=== PATIENT | male | born 1965 | race Caucasian/White ===

== ENCOUNTER 2023-02-05 06:56 | Day surgery (SDC) | payer BC ==
[2023-02-05] MEDS ORDERED: Sodium Chloride 0.9% 10 ML Syringe FLUSH PRN (07:00)
[2023-02-05] MEDS ORDERED: Lactated Ringers 1,000 ML IV SCH (07:00)
[2023-02-05] MEDS ORDERED: Simethicone Drops 40 MG/0.6 ML 30 ML Bottle ONE (08:35)
[2023-02-05 09:51] VITALS: BP 122/83; PULSE 58
[2023-02-05] MEDS ORDERED: fentaNYL 100 MCG/2 ML SDV IV ONE (14:48)
[2023-02-05] MEDS ORDERED: Propofol 200 MG/20 ML SDV IV ONE (14:48)
[2023-02-05] MEDS ORDERED: Midazolam 1 MG/ML 2 ML SDV IV ONE (14:48)
== END 2023-02-05 09:47 | disposition home or self-care (01) ==
LOC: FB.SDS 06:56
PROVIDERS: ATTEND Surgery
DX: Z12.11 Encounter for screening for malignant neoplasm of colon (principal); D12.2 Benign neoplasm of ascending colon; D12.0 Benign neoplasm of cecum; K57.30 Diverticulosis of large intestine without perforation or abscess without bleeding; E78.5 Hyperlipidemia, unspecified; Z80.0 Family history of malignant neoplasm of digestive organs; Z79.899 Other long term (current) drug therapy
CPT/HCPCS: 00811; 45385; 88305; A9270; J2250; J2704; J3010; J7120